=== PATIENT | female | born 1980 | race Caucasian/White ===

== ENCOUNTER 2023-08-19 19:26 | Emergency (ER) | payer MEDICAID, SELFPAY ==
--- NOTE | ~2023-08-19 | CT_ITS ---
EXAMINATION: CT ABDOMEN AND PELVIS WITHOUT CONTRAST CLINICAL INFORMATION: Right-sided flank pain and hematuria COMPARISON: None available. TECHNIQUE: Multidetector volumetric imaging was performed from the superior aspect of the liver through the pubic symphysis. Sagittal and coronal reformatted images were obtained on the technologist's workstation. This CT examination was performed using dose optimization techniques as appropriate, variously including the following: *Automated exposure control *Adjustment of mA and/or kV according to patient size (this includes techniques or standardized protocols for targeted exams where dose is matched to indication/reason for exam; i.e. extremities or head) *Use of iterative reconstruction technique DLP: 625 mGy-cm FINDINGS: LUNG BASES: The visualized lung bases are unremarkable. LIVER, GALLBLADDER, AND BILIARY TREE: The liver is enlarged measuring 21.8 cm in greatest length with normal shape and attenuation. No focal hepatic lesion or biliary ductal dilatation is present. The gallbladder is unremarkable with no evidence of radiopaque gallstones, gallbladder wall thickening, or obvious pericholecystic inflammatory changes. PANCREAS: Unremarkable. SPLEEN: Unremarkable. ADRENAL GLANDS: Unremarkable. KIDNEYS AND URETERS: The kidneys are normal in size, shape, and attenuation. 3 small calculi are present in the right kidney the largest measuring 3.5 mm. 3-4 punctate 1 to 2 mm calculi are present in the left kidney No hydronephrosis, hydroureter, or ureteral calculi seen. No perinephric stranding. BLADDER: Unremarkable. GASTROINTESTINAL TRACT: The small and large bowel are unremarkable. The appendix is not seen but there is no evidence of appendicitis evidence of appendicitis.. ABDOMINAL WALL: There is been mesh hernia repair. No significant new or recurrent hernia is appreciated. LYMPH NODES: Normal. VASCULAR: Unremarkable. PELVIC VISCERA: The uterus is not seen. An abnormal adnexal mass is not detected. No free intraperitoneal fluid is present. The left ovary appears to be present (3:63). The right ovary is not seen. OSSEOUS STRUCTURES: Unremarkable. CT/CT abdomen pelvis wo IV con IMPRESSION: 1. Bilateral nonobstructing renal calculi. 2. Incidental note made of enlarged liver, mesh hernia repair, hysterectomy and right oophorectomy. Fleischner guidelines were followed.
--- NOTE | ~2023-08-19 | US_ITS ---
EXAMINATION: US PELVIS COMPLETE CLINICAL INFORMATION: Ovarian cyst. COMPARISON: None available. TECHNIQUE: Ultrasound of the pelvis is performed using both transabdominal transducers along with Doppler. FINDINGS: Uterus: The uterus has been surgically removed. Adnexa: Both ovaries are visualized. There is normal color flow to the adnexa. There is no ovarian torsion. There is no pelvic ascites or fluid collection. Right ovary measures 4.3 x 4 0.0, 3.5 cm. There is a complex 3.1 x 3.0 x 2.2 cm hypoechoic structure associated with the right ovary. Left ovary measures 1.6 x 2.5 x 1.8 cm. US/US pelvic complete IMPRESSION: 1. Complex 3.1 x 3.0 x 2.2 cm hypoechoic structure associated with the right ovary. This may represent a hemorrhagic cyst. Consider Follow-up ultrasound in 6-8 weeks. 2. No evidence of ovarian torsion. 3. Status post hysterectomy.
[2023-08-19 19:32] VITALS: BP 163/109; PULSE 100; RESP 20; TEMP 37.4; O2SAT 98
--- NOTE | 2023-08-19 19:32 | ED.ABDPAIN ---
HPI - Abdominal Pain General Chief Complaint: Abdominal Pain Stated Complaint: rt lower abd pain/sent from urgent care phys Time Seen by Provider: 08/19/23 21:39 History of Present Illness HPI narrative: The patient is a 43-year-old woman who says that she has had pain in her right abdomen for 5 days. She says that the pain began in the right side of her abdomen Wednesday and has been persistent ever since. His that she has a history of kidney stones not think this feels like her kidney stone pain. Has a surgical history of a but no other abdominal surgeries. She says that yesterday she had lot of vomiting. she thought that perhaps she was constipated. She says she has a history of constipation. Ultimately she decided to go to an urgent care center today and she was referred to the emergency room. No fever. Related Data Previous Rx's ?Medication ?Instructions ?Recorded oxycodone 5 mg capsule 5 mg PO Q6H PRN pain #12 caps 08/20/23 Allergies Allergy/AdvReac Type Severity Reaction Status Date / Time ibuprofen [IBUPROFEN] Allergy Intermediate SWELLING Verified 08/19/23 19:35 Penicillins Allergy Unknown RASH Verified 08/19/23 19:35 Review of Systems Review of Systems Yes all other systems are reviewed and are negative [facility] Social History Social History Alcohol intake: current Alcohol intake frequency: holidays/special occasions only Smoked in Last 30 Days: No Use of substances other than those prescribed or required for medical reasons: No Advance Directives: No Advance Directives Information Provided: No Patient : No Physical Exam ED Vital Signs: Vital Signs - 24 hr 08/19/23 19:32 08/19/23 22:24 08/20/23 03:11 Temperature 99.3 F 98.5 F 98.3 F Pulse Rate 100 71 80 Respiratory Rate 20 18 17 Blood Pressure 163/109 H 164/105 H 153/92 H Pulse Oximetry 98 97 96 Oxygen Delivery Method Room Air Room Air Room Air 08/20/23 05:13 Temperature 98.0 F Pulse Rate 84 Respiratory Rate 18 Blood Pressure 168/110 H Pulse Oximetry Oxygen Delivery Method BMI result Body Mass Index 30.0 Const Other: The patient is awake and alert. She looks mildly uncomfortable HENMT Other: Face is symmetrical, mucous membranes moist Eyes Other: Round equal, conjunctivae clear Neck Other: Moving her neck easily Resp Effort & Inspection: normal respiratory effort Auscultation: clear to auscultation bilaterally Cardio Rate: regular rate Rhythm: regular rhythm Heart sounds: S1 normal heart sound present and S2 normal heart sound present GI Other: The patient has generalized right-sided abdominal tenderness mostly in the right lower quadrant. Back/Spine/Pelvis Other: There is right-sided CVA percussion tenderness Skin Other: Skin is dry and unremarkable Neuro Other: Awake, alert, neurologically intact Extrem Other: No calf swelling or tenderness Course Course Course Narrative: This is a Rapid Medical Examination (RME) in triage, full HPI, ROS, assessment and plan per primary provider in the Main ED. 43 yo female presenting to the ER for evaluation of right sided sharp abdominal pains, N/V for the last 5 days. Temp 101 yesterday. Vomiting all day today and the pain is worse. RUQ and RLQ tenderness on exam in triage. Plan: labs; imaging per primary provider Medical Decision Making Medical Decision Making MDM Narrative: The patient is a 43-year-old woman who presented with a right lower quadrant pain of several days' duration. Clinically my initial impression was that the patient probably had a right-sided kidney stone. She had right-sided CVA percussion tenderness and she had hematuria. Labs were otherwise fairly unremarkable and not suggestive of appendicitis. A CT scan of the abdomen and pelvis was done which was initially read as being negative for any acute process. I reviewed the images and felt that there was a mass in the right lower quadrant of uncertain significance. I contacted the radiologist who felt that this was very likely the patient's right ovary which was associated with an ovarian cyst. This seemed to be actually in the area of the patient's pain and tenderness on her abdominal exam in the right lower quadrant. Given the degree of discomfort I obtained an ultrasound to ensure that the ovary was not torsed. The ultrasound showed good flow to the ovary. It therefore seems that the patient's pain is probably being caused by the ovarian cyst on the right ovary (the ovary is in his somewhat eccentric position because of a previous hysterectomy). Given the absence of any torsion I do not feel this cyst requires acute management other than pain control. The patient reports an allergy to ibuprofen. We tried a very small dose of ketorolac. This did not provide much in the way of pain relief and the patient reported some minor itching following the ketorolac. The patient will therefore be provided with a small prescription for oxycodone that she may use in addition to acetaminophen contact the Gynecology office for follow up and further recommendations. Lab Data 08/19/23 20:09 08/19/23 20:09 Labs: Lab Results 08/19/23 Range/Units 20:09 WBC 12.8 H (4.8-10.8) X10*3/uL RBC 5.01 (4.20-5.50) X10*6/uL Hgb 14.6 (12.0-16.0) g/dl Hct 42.4 (37.0-47.0) % MCV 84.6 (80.0-98.0) fL MCH 29.1 (27.0-33.0) pg MCHC 34.4 (31.0-35.0) g/dl RDW 13.0 (11.0-16.0) % Plt Count 322 (160-400) X10*3/uL MPV 9.4 (9.4-12.3) fL Immature Gran % (Auto) 0.6 H (0.0-0.4) % Neut % (Auto) 70.4 (45-73) % Lymph % (Auto) 21.7 (20-40) % Crawford % (Auto) 6.1 (2-11) % Eos % (Auto) 0.8 (0-4) % Baso % (Auto) 0.4 (0-2) % Lymph # (Auto) 2.8 (1.2-4.9) X10*3/uL Crawford # (Auto) 0.8 (0.1-1.2) X10*3/uL Eos # (Auto) 0.1 (0.0-0.4) X10*3/uL Baso # (Auto) 0.1 (0.0-0.2) X10*3/uL Abs Immat Gran (auto) 0.08 H (0.00-0.03) X10*3/uL Absolute Neuts (auto) 9.0 H (2.0-8.3) x10*3/uL Absolute Nucleated RBC 0.000 (0.0-0.012) X10*3/uL Nucleated RBC % (auto) 0.0 (0.0-0.2) /100WBC Sodium 140 (135-145) mmol/L Potassium 3.5 (3.3-5.1) mmol/L Chloride 107 (96-108) mmol/L Carbon Dioxide 23 (22-29) mmol/L Anion Gap 14 (12-20) BUN 11 (9-16) mg/dL Creatinine 0.71 (0.5-1.4) mg/dL Estim Creat Clear Calc 108.9 Estimated GFR > 60 Random Glucose 109 (60-115) mg/dL Calcium 9.8 (8.4-10.2) mg/dL Magnesium 2.4 (1.6-2.6) mg/dL Total Bilirubin 0.5 (0.0-1.0) mg/dL Direct Bilirubin 0.2 (0.0-0.5) mg/dL AST 19 (5-31) U/L ALT 43 H (0-31) U/L Alkaline Phosphatase 60 (39-117) U/L C-Reactive Protein 0.27 (< or = 0.50) mg/dL Total Protein 7.7 (6.5-8.0) g/dL Albumin 4.4 (3.5-5.0) g/dL Lipase 27 (8-78) U/L Urine Color Dark Yellow Urine Appearance Cloudy Urine pH 6.0 (5.0-9.0) Ur Specific [place] >= 1.030 H (1.005-1.025) Urine Protein Trace (Neg-Trace) mg/dL Urine Glucose (UA) Negative (Negative) mg/dL Urine Ketones Negative (Negative) mg/dL Urine Blood Large (3+) H (Negative) Urine Nitrite Negative (Negative) Ur Leukocyte Esterase Negative (Negative) Urine RBC >20 H (0-2) /HPF Urine WBC 0-5 (0-5) /HPF Ur Squamous Epith Cells 3-5 (0-2) /HPF Urine Bacteria Trace (None Seen) Hyaline Casts 0-2 (0-2) /LPF Urine Test NEGATIVE (NEGATIVE) Influenza Type A (PCR) NEGATIVE (Negative) Influenza Type B (PCR) NEGATIVE (Negative) RSV RNA Qual (PCR) NEGATIVE (Negative) SARS-CoV-2 RNA (RT-PCR) NEGATIVE (Negative) Medications Administered Discontinued Medications Generic Name Dose Route Start Last Admin Trade Name Freq PRN Reason Stop Dose Admin Sodium Chloride 1,000 mls @ 999 mls/hr 08/19/23 22:00 08/19/23 23:30 Ns IV 08/19/23 23:00 Infused .Q1H1M BAYLEE Infusion Ketorolac Tromethamine 10 mg 08/19/23 21:50 08/19/23 22:20 Ketorolac Tromethamine 15 Mg/Ml Vial IVPUSH 08/19/23 21:51 10 mg ONCE ONE Administration Ondansetron HCl 4 mg 08/19/23 21:50 08/19/23 22:19 Ondansetron Hcl 4 Mg/2 Ml Vial IVPUSH 08/19/23 21:51 4 mg ONCE ONE Administration Oxycodone HCl 5 mg 08/20/23 04:55 08/20/23 05:12 Oxycodone Hcl Immed Release 5 Mg Tablet PO 08/20/23 04:56 5 mg ONCE ONE Administration Discharge Plan Discharge Clinical Impression: Right lower quadrant abdominal pain, Cyst of right ovary Patient Disposition: Home, Self-Care Additional Instructions: I believe that the pain you have been experiencing is coming from a cyst on your right ovary. You may take 2 extra-strength acetaminophen (Tylenol) up to 3 times a day as needed for this pain. Additionally I have sent a prescription for oxycodone tablets to your pharmacy which you may also use as needed for pain. Please plan on contacting the real estate administrative assistant to arrange follow up for this problem. Return to the emergency room if significantly worse. Prescriptions: New oxycodone 5 mg capsule 5 mg PO Q6H PRN (Reason: pain) Qty: 12 0RF Rx Instructions: Partial Fill upon patient request. Referrals: Chevy Del Angel FNP [Primary Care Provider] - (painful ovarian cyst) Rik Sanders MD [Physician] - (painful right ovarian cyst) Stand Alone Forms: Work/School Release Interventions: ED Discharge Assessment Last Done: 08/20/23 05:13 Discharge Date/Time: 08/20/23 05:20 Print Language: Kinyarwanda
[2023-08-19 20:15] LABS: MANUAL DIFF FLAG NO
[2023-08-19 20:19] LABS: Appearance Urine Cloudy; Color Urine Dark Yellow; Glucose Urine UA Negative (Negative); Leukocyte Esterase Urine Negative (Negative); Nitrite Urine Negative (Negative); Specific Gravity - Urine >= 1.030 (1.005-1.025); UMIC TRIGGER UACC YES; Urine Blood Large (3+) (Negative); Urine Ketones Negative (Negative); Urine Protein Trace mg/dL (Neg-Trace)
[2023-08-19 20:21] LABS: UPreg QC Valid YES; Urine Pregnancy NEGATIVE (NEGATIVE)
[2023-08-19 20:27] LABS: Bacteria Urine Trace (None Seen); Hyaline Casts Urine 0-2 /LPF (0-2); RBC Urine >20 /HPF (0-2); WBC Urine 0-5 /HPF (0-5)
[2023-08-19 20:32] LABS: Alanine Aminotransferase 43 U/L (0-31); Albumin Level 4.4 g/dL (3.5-5.0); Alkaline Phosphatase 60 U/L (39-117); Anion Gap 14 (12-20); Aspartate Amino Transferase 19 U/L (5-31); Bilirubin Direct 0.2 mg/dL (0.0-0.5); Bilirubin Total 0.5 mg/dL (0.0-1.0); Blood Urea Nitrogen 11 mg/dL (9-16); Calcium 9.8 mg/dL (8.4-10.2); Carbon Dioxide 23 mmol/L (22-29); Chloride 107 mmol/L (96-108); Creatinine Clr Calc Pharmacy 108.9; Estimated Glomerular Filt Rate > 60; Glucose Random 109 mg/dL (60-115); Lipase 27 U/L (8-78); Magnesium 2.4 mg/dL (1.6-2.6); Potassium 3.5 mmol/L (3.3-5.1); Sodium 140 mmol/L (135-145); Total Protein 7.7 g/dL (6.5-8.0)
[2023-08-19 20:34] LABS: Basophils Absolute Auto 0.1 X10*3/uL (0.0-0.2); Basophils Percent Auto 0.4 % (0-2); Eosinophils Absolute Auto 0.1 X10*3/uL (0.0-0.4); Eosinophils Percent Auto 0.8 % (0-4); Hematocrit 42.4 % (37.0-47.0); Hemoglobin 14.6 g/dl (12.0-16.0); Imm Gran Abs Auto 0.08 X10*3/uL (0.00-0.03); Imm Gran Pct Auto 0.6 % (0.0-0.4); Lymphocytes Absolute Auto 2.8 X10*3/uL (1.2-4.9); Lymphocytes Percent Auto 21.7 % (20-40); Mean Corpuscular HGB Conc 34.4 g/dl (31.0-35.0); Mean Corpuscular Hemoglobin 29.1 pg (27.0-33.0); Mean Corpuscular Volume 84.6 fL (80.0-98.0); Mean Platelet Volume 9.4 fL (9.4-12.3); Monocytes Absolute Auto 0.8 X10*3/uL (0.1-1.2); Monocytes Percent Auto 6.1 % (2-11); Neutrophils Percent Auto 70.4 % (45-73); Platelet Count 322 X10*3/uL (160-400); Red Blood Count 5.01 X10*6/uL (4.20-5.50); White Blood Count 12.8 X10*3/uL (4.8-10.8)
[2023-08-19 20:54] LABS: Influenza A PCR NEGATIVE (Negative); Influenza B PCR NEGATIVE (Negative); Resp Syncy Virus RNA Qual PCR NEGATIVE (Negative); SARS COV2 PCR INHOUSE NEGATIVE (Negative)
[2023-08-19 22:15] LABS: C Reactive Protein 0.27 mg/dL (< or = 0.50)
[2023-08-19] MEDS: ondansetron HCL 4 MG/2 ML VIAL IVPUSH (22:19)
[2023-08-19] MEDS: Ketorolac Tromethamine 15 MG/ML VIAL 10 MG IVPUSH (22:20)
[2023-08-19] MEDS: 0.9 % Sodium Chloride 1,000 ML 999 ML IV (22:21)
[2023-08-19 22:24] VITALS: BP 164/105; PULSE 71; RESP 18; TEMP 36.9; O2SAT 97
[2023-08-20 03:11] VITALS: BP 153/92; PULSE 80; RESP 17; TEMP 36.8; O2SAT 96
[2023-08-20] MEDS: oxyCODONE HCl Immed Release 5 MG TABLET PO (05:12)
[2023-08-20 05:13] VITALS: BP 168/110; PULSE 84; RESP 18; TEMP 36.7
== END 2023-08-20 05:20 | disposition home or self-care (01) ==
PROVIDERS: Physician Assistant; Emergency Provider Emergency Medicine; PCP Nurse Practitioner Family
DX: N83.201 Unspecified ovarian cyst, right side (principal); R10.31 Right lower quadrant pain; R11.2 Nausea with vomiting, unspecified; R50.9 Fever, unspecified; Z11.52 Encounter for screening for COVID-19; Z20.822 Contact with and (suspected) exposure to COVID-19; Z79.899 Other long term (current) drug therapy
CPT/HCPCS: 0241U; 36415; 74176; 76856; 80048; 80076; 81001; 81025; 83690; 83735; 85025; 86140; 96361; 96374; 96375; 99284; J1885; J2405

== ENCOUNTER 2023-09-28 15:28 | Outpatient (AMB) | payer OTHER, SELFPAY ==
--- NOTE | 2023-09-28 15:37 | A.OFFVIS_ITS ---
Vital Signs 09/28/23 15:46 Height 5 ft 5 in Weight 191 lb BMI 31.8 BP 142/90 H Intake Visit Reasons: pelvic pain Intake Note: Right side cramping in lower abdomen, was having a lot of back pain and nausea Launch Check Out Required: No Information Interpreted: non-clinical & clinical Beauty Sales Consultant: Beauty Sales Consultant Present (Aidyn) Allergies ibuprofen [IBUPROFEN] Allergy (Intermediate, Verified 09/28/23 15:48) SWELLING Penicillins Allergy (Unknown, Verified 09/28/23 15:48) RASH Is last menstrual period known: No Post menopausal: No Patient : No HPI Comments Details: Patient is here for a follow up ultrasound from an ED visit she had a diagnosed with right complex ovarian cyst she reports the pain is intermittent, uncomfortable at times she uses Tylenol and a heating pad, not always helpful, and reports missing work and is concerned about her job. Allergies to ibuprofen. History of hysterectomy due to fibroids and heavy menstrual bleeding. PFSH Medical History (Updated 09/28/23 @ 16:10 by Taty Hernandez CNM) Hypothyroid High blood pressure Surgical History (Updated 09/28/23 @ 16:13 by Taty Hernandez CNM) Hx of section Hx of hysterectomy Social History Alcohol intake: current Alcohol intake frequency: holidays/special occasions only Patient : No Female Reproductive History Menstrual Age of Menarche: 15 control method: permanent sterilization Total pregnancies: 1 Full term: 1 Number of Living Children: 1 Date of last pap smear: 11/08/09 (negative) Review of Systems Const All systems reviewed & are unremarkable except as noted in HPI and below Physical Exam Vital Signs: Last Vital Signs BP 142/90 H 09/28/23 15:46 BMI result Body Mass Index 31.8 Const General: cooperative, healthy appearing and no acute distress Orientation/consciousness: patient oriented x3 GI Other: Superficial tenderness to the anterior muscle wall and lower right side, inverted T scarring Inspection: Yes normal to inspection and Yes scar Palpation (GI): Soft to palpation Rectal Exam - Female: visual inspection normal General: Yes bladder normal to palpation External Female Exam: normal appearance of the urethra Speculum Exam - Vagina: normal appearance of the vagina, normal palpation and normal vaginal discharge Speculum Exam - Cervix: Cervix absent (Vaginal cuff no lesions or nodules) Bimanual exam- vagina & uterus: normal bimanual exam, normal palpation, bladder normal to palpation and uterus absent Bimanual Exam- Adnexa, other: normal adnexae Neuro General: patient oriented x3 Results AMB Urinalysis, Automated UA Leukoctes 0 Robinson/uL Last Edit by FELISA Hannon on 09/28/23 16:24 UA Nitrite Negative Last Edit by FELISA Hannon on 09/28/23 16:24 UA Urobilinogen 0 mg/dL Last Edit by FELISA Hannon on 09/28/23 16:24 UA Protein 0.5 mg/dL Last Edit by Tmaiko Kaiser Austin on 09/28/23 16:24 UA pH 6 Last Edit by Tamiko Kaiser [place] on 09/28/23 16:24 UA Blood 0 Darrel/uL Last Edit by Tamiko Kaiser [place] on 09/28/23 16:24 UA Specific [place] 1.025 Last Edit by FELISA Hannon on 09/28/23 16: 24 UA Ketone Negative Last Edit by Tamiko Kaiser [place] on 09/28/23 16:24 UA Bilirubin 0 mg/dL Last Edit by Tamiko Kaiser [place] on 09/28/23 16:24 UA Glucose 0 mg/dL Last Edit by FELISA Hannon on 09/28/23 16:24 Results Reviewed Results Reviewed: [place] [id number] Ultrasound Report Signed Patient: Anne Grajeda MR#: [id number] : 1980 Acct:[id number] Age/Sex: 43 / F ADM Date: 08/19/23 Loc: HO.ED Attending Dr: Ordering Physician: Syd Valentin MD Date of Service: 08/20/23 Procedure(s): US pelvic complete Accession Number(s): [id number] cc: Syd Valentin MD; Chevy Del AngelP~ EXAMINATION: US PELVIS COMPLETE CLINICAL INFORMATION: Ovarian cyst. COMPARISON: None available. TECHNIQUE: Ultrasound of the pelvis is performed using both transabdominal transducers along with Doppler. FINDINGS: Uterus: The uterus has been surgically removed. Adnexa: Both ovaries are visualized. There is normal color flow to the adnexa. There is no ovarian torsion. There is no pelvic ascites or fluid collection. Right ovary measures 4.3 x 4 0.0, 3.5 cm. There is a complex 3.1 x 3.0 x 2.2 cm hypoechoic structure associated with the right ovary. Left ovary measures 1.6 x 2.5 x 1.8 cm. US/US pelvic complete IMPRESSION: 1. Complex 3.1 x 3.0 x 2.2 cm hypoechoic structure associated with the right ovary. This may represent a hemorrhagic cyst. Consider Follow-up ultrasound in 6-8 weeks. 2. No evidence of ovarian torsion. 3. Status post hysterectomy. Dictated By: Mati Larsen Signed By: <Electronically signed by Mati Larsen in OV> 08/20/23 0348 DD/ 0240 TD/TT: Service Secretary: Assessment & Plan Assessment & Plan (1) Complex cyst of right ovary: Code(s): N83.291 - Other ovarian cyst, right side Category: Medical Plan Discussed: Findings of ultrasound, Counseled regarding findings of: Complex ovarian cyst, which is often benign, and most resolve on their own overtime. Some develop into premalignant or malignant tumors. Further monitoring and evaluation is recommended with US, possible CT, or MRI study. If persists, or is indicated (Ca-125, Carbohydrate Antigen 19-9, & Carcinoembryonic Antigen) labs will be ordered and referral to [facility] or general gynecology for MD care if indicated for possible surgical consult. Follow up in person for test results. Abdominal tenderness possible myofascial pain, consider treatment option with pain management. If pelvic pain is severe to return to the emergency room for immediate care. All of her questions and concerns were addressed to the best of my ability and shared decision making. She is agreeable to the plan of care. This note is constructed using voice recognition software. While every effort has been made to ensure accuracy, [employer] professor errors may have been included. Orders: Orders AMB Urinalysis Automated Today R10.2 - Pelvic and perineal pain US pelvic and transvaginal 10/01/23 N83.291 - Other ovarian cyst, right side Medications: Discontinued oxycodone Partial Fill upon patient request. Discontinued Reason: Patient no longer taking 5 mg PO Q6H PRN 12 caps 0RF pain Coding Level of Care Code New Pt Level 4 (73069) Diagnoses Complex cyst of right ovary N83.291
[2023-09-28 15:46] VITALS: BP 142/90; BMI 31.8
== END 2023-09-28 16:22 | disposition home or self-care (01) ==
PROVIDERS: PCP Nurse Practitioner Family; Visit Provider Advanced Practice Midwife
DX: R10.2 Pelvic and perineal pain (principal); N83.291 Other ovarian cyst, right side
CPT/HCPCS: 99204

== ENCOUNTER → 2023-09-28 15:28 | Outpatient (BNVA) | payer OTHER, SELFPAY | PROVIDERS: PCP Nurse Practitioner Family; Visit Provider Advanced Practice Midwife | DX: N83.291 Other ovarian cyst, right side (principal) | CPT/HCPCS: 81003 ==